=== PATIENT | male | born 1995 | race Caucasian/White ===

== ENCOUNTER 2020-11-10 13:11 | Emergency (ER) | payer MEDICAID ==
[2020-11-10] MEDS ORDERED: Acetaminophen/HYDROcodone 325-5 MG Tab PO ONE (14:05)
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
== END 2020-11-10 14:19 | disposition home or self-care (01) ==
LOC: JP.ED 13:11
DX: M54.5 Low back pain (principal); G89.29 Other chronic pain; Z72.0 Tobacco use; Z79.899 Other long term (current) drug therapy
CPT/HCPCS: 99283; A9270-GY

== ENCOUNTER 2020-11-12 09:50 | Emergency (ER) | payer MEDICAID ==
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
== END 2020-11-12 12:47 | disposition home or self-care (01) ==
LOC: JP.ED 09:50
DX: M54.5 Low back pain (principal); G89.29 Other chronic pain; Z76.5 Malingerer [conscious simulation]; Z72.0 Tobacco use
CPT/HCPCS: 99282; 99283

== ENCOUNTER 2020-11-16 12:37 | Emergency (ER) | payer MEDICAID ==
[2020-11-16] MEDS ORDERED: Lidocaine 5% 700 MG Patch TOP ONE (13:34)
[2020-11-16] MEDS ORDERED: Acetaminophen/HYDROcodone 325-5 MG Tab PO ONE ×2 (13:34→13:43)
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
== END 2020-11-16 14:11 | disposition home or self-care (01) ==
LOC: JP.ED 12:37
DX: M54.5 Low back pain (principal); G89.29 Other chronic pain; Z79.899 Other long term (current) drug therapy
CPT/HCPCS: 80305; 99283; A9270

== ENCOUNTER 2020-11-17 | Emergency (ER) | payer MEDICAID ==
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
[2020-11-20 14:11] LABS: CHLAMYDIA TRACHOMATIS, NAA Negative (Negative); NEISSERIA GONORRHOEAE, NAA Negative (Negative)
== END 2020-11-17 02:40 | disposition home or self-care (01) ==
LOC: JP.ED
DX: T76.21XA Adult sexual abuse, suspected, initial encounter (principal); S20.419A Abrasion of unspecified back wall of thorax, initial encounter; Z72.0 Tobacco use; Z79.899 Other long term (current) drug therapy
CPT/HCPCS: 87491; 87591; 99285

== ENCOUNTER 2020-11-19 22:42 | Emergency (ER) | payer MEDICAID ==
--- NOTE | 2020-11-19 23:08 | EDM.PDOC ---
ED HPI GENERAL MEDICAL PROBLEM - General Chief Complaint: Lower Extremity Injury/Pain Stated Complaint: LEG AND SIDE PAIN Time Seen by Provider: 11/19/20 22:59 Source of Information: Reports: Patient History Limitations: Reports: No Limitations - History of Present Illness INITIAL COMMENTS - FREE TEXT/NARRATIVE: Patient presents describing burning pain in his legs despite multiple different medications used for pain over some time. He was seen in the clinic in town earlier today and was prescribed both diclofenac and prednisone for the symptoms he is describing now. He states that his legs still have a burning discomfort and nothing is helping. He has been seen multiple times in this department recently all of which were visits for pain management. There is an extensive note with reviews of the prescription drug database and prescriptions obtained from multiple providers for this discomfort. He was able to walk into the building tonight and is able to drive a vehicle, as observed on security cameras. 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: Other Medication(s) (He relates a list of multiple medications which have been tried but which do not work for his symptoms.) bilateral leg Pain Score (Numeric/FACES): 10 - Related Data Allergies Allergy/AdvReac Type Severity Reaction Status Date / Time No Known Allergies Allergy Verified 11/17/20 00:15 Home Meds: Home Meds Acetaminophen [Tylenol] 1,000 mg PO Q4H 11/10/20 [History] Indomethacin [Indocin SR] 75 mg PO BID 11/10/20 [History] Methylphenidate HCl [Methylphenidate ER] 10 mg PO BID 11/12/20 [History] Past Medical History Cardiovascular History: Reports: None Respiratory History: Reports: None Gastrointestinal History: Reports: Chronic Diarrhea Genitourinary History: Reports: None Musculoskeletal History: Reports: Back Pain, Chronic Neurological History: Reports: Head Trauma Psychiatric History: Reports: ADHD, Anxiety, PTSD Endocrine/Metabolic History: Reports: None Hematologic History: Reports: None Immunologic History: Reports: None Oncologic (Cancer) History: Reports: None Dermatologic History: Reports: None - Infectious Disease History Infectious Disease History: Reports: C-Difficile - Past Surgical History HEENT Surgical History: Reports: Tonsillectomy Social & Family History - Caffeine Use Caffeine Use: Reports: Soda Review of Systems - Review of Systems Review Of Systems: Unable To Obtain Reason Not Obtained: Perseveration on his description of burning legs. Neurological: Reports: Other (Burning pain in both legs over the entire surfaces and into the buttocks.). Denies: Numbness, Paresthesia, Tingling ED EXAM, GENERAL - Physical Exam Exam: See Below Exam Limited By: Other General Appearance: Anxious, Mild Distress, Other (He was reclining in the chair in room 2 and when we were in the room was rotating his feet and legs and alternating internal/external rotation manner. He is noted to be tachycardic with a pulse of 125 and a slightly elevated blood pressure. Based on his demeanor and his vital signs, I am concerned that he is using street drugs or excessive quantities of unspecified prescription drugs.) Neck: Supple Respiratory/Chest: No Respiratory Distress Cardiovascular: Tachycardia Extremities: Other (He moves his legs in a rhythmic internal and external rotation symmetric movement. He has no difficulty using either of his upper extremities.). No: Limited Range of Motion Neurological: Alert Psychiatric: Other Course - Vital Signs Last Recorded V/S: Last Vital Signs Temp 35.6 C L 11/19/20 23:08 Pulse 125 H 11/19/20 23:08 Resp 18 11/19/20 23:08 BP 144/78 H 11/19/20 23:08 Pulse Ox 100 11/19/20 23:08 - Re-Assessments/Exams Free Text/Narrative Re-Assessment/Exam: 11/19/20 23:47 I reviewed multiple recent department records prior to seeing the patient in the room. When I arrived in the room, he was reclining in the chair in room 2 and was still. When I entered, he began to move his feet and legs in and out in an oscillating movement and continued to do that for the time that I was in the room. He repeated over and over again that it seems like people just "throw drugs" at him without trying to figure out what is going on? Other visits here and outside records reviewed related to his complaints demonstrate otherwise. I was unable to rationalize my plan for chronic pain management. I made reference to other places where I work one of which being the [facility] system where most people have chronic pain. The current medication that he was given in the clinic is very appropriate for ongoing burning nerve pain, which is how I interpret his description of symptoms. I discussed that neurologists and neurosurgeons treat patients and get some relief using steroid bursts. They do not use narcotic medications for chronic pain. He was also prescribed diclofenac which he could use once the prednisone course has finished. He then was asking about muscle relaxant such as Valium and I told him that that also is not appropriate for his current condition as they are not pain relievers. I asked if he had ever been on gabapentin and he told me that it gave him hallucinations. I stated, again, that gabapentin or pregabalin along with prednisone are used for burning nerve pain such as he is describing. He stated that "So you are telling me that you are refusing to provide care?" I stated that I was not refusing to provide care but that based on his complaints and his appearance tonight and review of other records, he currently has available to him the medications which I would use for burning leg pain. I told him he was being discharged. He continued to be increasingly argumentative and I left the room. Nursing staff came to present him with his discharge instructions and he continued to debate and argue with the nurse. I returned to the room twice afterward to again state my position regarding management of his pain and we could not accomplish anything in terms of a useful dialogue. He asked about getting indomethacin for his pain but I told him, several times, that the prednisone prescribed is stronger than indomethacin and any other medicine in that class and I would not be prescribing it. He then returned to the statement regarding providers just "throwing drugs" at him without realizing the fallacy in his arguments. I became increasingly concerned for the safety of the staff in this department given what I feel is significant drug-seeking behavior and law alonso solis was called to escort him from the building. 11/20/20 00:14 The patient called back from his truck in the parking lot later crying and wishing to speak to the night revenue cycle administrator. After she spoke with him, he stated that all he wanted was a "f---ing" Lidoderm patch, a topic which NEVER came up when myself nor the nursing staff were in the room with him previously. I discussed with the nursing smoke control supervisor that I could certainly give him a prescription to fill in the morning for Lidoderm patches. When she attempted to call the patient back, he did not answer his phone and had driven away from the facility. 11/20/20 00:40 Departure - Departure Time of Disposition: 23:20 Disposition: Home, Self-Care 01 Condition: Good Clinical Impression: Drug-seeking behavior Chronic low back pain Qualifiers: Back pain laterality: bilateral Sciatica presence: without sciatica Qualified Code(s): M54.5 - Low back pain - Discharge Information Instructions: Chronic Back Pain, [id number] Referrals: PCP,None [Primary Care Provider] - Forms: ED Department Discharge Additional Instructions: Continue currently prescribed prednisone and diclofenac. Cold packs to painful areas 20 minutes off and on. Narcotic medication is not appropriate for long- term pain and will not be prescribed tonight. The mainstay of dealing with chronic pain involves nonpharmacologic and physical therapy treatment. Sepsis Event Note (ED) - Focused Exam Vital Signs: Vital Signs Temp Pulse Resp BP Pulse Ox 11/19/20 23:08 35.6 C L 125 H 18 144/78 H 100 11/19/20 22:56 35.6 C L 125 H 18 144/78 H 100
== END 2020-11-19 23:26 | disposition home or self-care (01) ==
LOC: JP.ED 22:42
DX: G89.29 Other chronic pain (principal); M54.5 Low back pain; M79.604 Pain in right leg; M79.605 Pain in left leg; Z76.5 Malingerer [conscious simulation]
CPT/HCPCS: 99283

== ENCOUNTER 2020-11-20 16:22 | Emergency (ER) | payer MEDICAID ==
[2020-11-20] MEDS ORDERED: Lidocaine 5% 700 MG Patch TRDERM ONE (17:14)
--- NOTE | 2020-11-20 17:20 | EDM.PDOC ---
ED HPI GENERAL MEDICAL PROBLEM - General Chief Complaint: Back Pain or Injury Stated Complaint: LEFT SIDE, PAIN IN LEGS Time Seen by Provider: 11/20/20 17:09 Source of Information: Reports: Patient, RN Notes Reviewed History Limitations: Reports: No Limitations - History of Present Illness INITIAL COMMENTS - FREE TEXT/NARRATIVE: 25-year-old gentleman returns the emergency department today for treatment of his chronic pain, he was evaluated in the emergency department last night discharged around midnight with police academy instructor escort. Dr. Moncada had written a prescription for Lidoderm patches however his insurance he states will not fill this medication the only time he can get this medication is when he has it placed in the emergency department. He tells me he has an appointment with the pain clinic on Sunday, he states he is here for a Lidoderm patch - Related Data Allergies Allergy/AdvReac Type Severity Reaction Status Date / Time No Known Allergies Allergy Verified 11/20/20 16:47 Home Meds: Home Meds Acetaminophen [Tylenol] 1,000 mg PO Q4H 11/10/20 [History] Indomethacin [Indocin SR] 75 mg PO BID 11/10/20 [History] Methylphenidate HCl [Methylphenidate ER] 10 mg PO BID 11/12/20 [History] Baclofen 1 tab PO TID 11/20/20 [History] predniSONE [Prednisone] 1 tab PO BID 11/20/20 [History] Past Medical History Cardiovascular History: Reports: None Respiratory History: Reports: None Gastrointestinal History: Reports: Chronic Diarrhea Genitourinary History: Reports: None Musculoskeletal History: Reports: Back Pain, Chronic Neurological History: Reports: Head Trauma Psychiatric History: Reports: ADHD, Anxiety, PTSD Endocrine/Metabolic History: Reports: None Hematologic History: Reports: None Immunologic History: Reports: None Oncologic (Cancer) History: Reports: None Dermatologic History: Reports: None - Infectious Disease History Infectious Disease History: Reports: C-Difficile - Past Surgical History HEENT Surgical History: Reports: Tonsillectomy Social & Family History - Tobacco Use Tobacco Use Status *Q: Current Every Day Tobacco User Years of Tobacco use: 10 Packs/Tins Daily: 0.5 - Caffeine Use Caffeine Use: Reports: Soda ED ROS GENERAL - Review of Systems Review Of Systems: See Below Constitutional: Reports: No Symptoms Musculoskeletal: Reports: Shoulder Pain, Arm Pain, Back Pain, Leg Pain Neurological: Reports: Numbness, Tingling ED EXAM, GENERAL - Physical Exam Exam: See Below Exam Limited By: No Limitations General Appearance: Alert, WD/WN, No Apparent Distress, Other (Resting comfortably in the chair) Respiratory/Chest: No Respiratory Distress Course - Vital Signs Last Recorded V/S: Last Vital Signs Temp 97.9 F 11/20/20 17:04 Pulse 109 H 11/20/20 17:04 Resp 16 11/20/20 17:04 BP 142/84 H 11/20/20 17:04 Pulse Ox 97 11/20/20 17:04 - Orders/Labs/Meds Meds: Medications Discontinued Medications Generic Name Dose Route Start Last Admin Trade Name Freq PRN Reason Stop Dose Admin Lidocaine 700 mg 11/20/20 17:14 Lidoderm 5% TRDERM 11/20/20 17:15 ONETIME ONE Departure - Departure Time of Disposition: 17:18 Disposition: Home, Self-Care 01 Condition: Poor Clinical Impression: Chronic pain Qualifiers: Chronic pain type: chronic pain syndrome Qualified Code(s): G89.4 - Chronic pain syndrome - Discharge Information Instructions: Chronic Pain, Adult Referrals: PCP,None [Primary Care Provider] - Additional Instructions: Please keep your appointment with the pain clinic on Sunday Sepsis Event Note (ED) - Evaluation Sepsis Screening Result: No Definite Risk - Focused Exam Vital Signs: Vital Signs Temp Pulse Resp BP Pulse Ox 11/20/20 17:04 97.9 F 109 H 16 142/84 H 97 11/20/20 16:34 97.9 F 109 H 16 142/84 H 97 - Assessment/Plan Plan: Assessment Acuity = chronic Site and laterality = pain syndrome Etiology = unknown suspicious for underlying mental health with addictive properties does have a history of methamphetamine abuse and dependence as well as malingering Manifestations = none Location of injury = Home Lab values = none Plan Granted a prescription for Lidoderm patch he also tried to Barter with me to get enough medication to hold him over until he visits with the pain clinic on Sunday asking for narcotic medication of which I declined I did discuss with him his recent clinic visit with Dr. Voss who recommended that opiates and benzodiazepines are not appropriate treatment for this gentleman's pain. He became argumentative with this at which time I left the room. This note was dictated using [employer] voice recognition software please call with any questions on syntax or grammar.
== END 2020-11-20 18:09 | disposition home or self-care (01) ==
LOC: JP.ED 16:22
DX: G89.4 Chronic pain syndrome (principal); Z72.0 Tobacco use; Z79.899 Other long term (current) drug therapy
CPT/HCPCS: 99283; A9270

== ENCOUNTER 2020-11-26 14:29 | Emergency (ER) | payer MEDICAID ==
--- NOTE | 2020-11-26 15:04 | EDM.PDOC ---
ED HPI GENERAL MEDICAL PROBLEM - General Chief Complaint: General Stated Complaint: FELL/HURT RIGHT SIDE Time Seen by Provider: 11/26/20 15:00 Source of Information: Reports: Patient, Old Records, RN Notes Reviewed History Limitations: Reports: No Limitations - History of Present Illness INITIAL COMMENTS - FREE TEXT/NARRATIVE: 25-year-old gentleman presents emergency department today following a fall at home, he tripped over his dog he landed on his right elbow right hip he states he is experiencing 9 out of 10 pain. I did go into the room with nurse fleet manager present. This gentleman I am concerned for drug-seeking behavior this is now his seventh visit in 3 weeks time always a complaint of pain with an aspect of narcotic seeking I also have reviewed him on the [place] prescription drug monitoring program his score is well over 700. He has tried icing at home he has used his indomethacin which he took about 10:00 the injury occurred at 1:00 he is also taken Tylenol just prior to arrival Right Elbow Pain Score (Numeric/FACES): 9 - Related Data Allergies Allergy/AdvReac Type Severity Reaction Status Date / Time No Known Allergies Allergy Verified 11/26/20 14:44 Home Meds: Home Meds Acetaminophen [Tylenol] 1,000 mg PO Q4H 11/10/20 [History] Indomethacin [Indocin SR] 75 mg PO BID 11/10/20 [History] Methylphenidate HCl [Methylphenidate ER] 10 mg PO BID 11/12/20 [History] Past Medical History Gastrointestinal History: Reports: Chronic Diarrhea Musculoskeletal History: Reports: Back Pain, Chronic Neurological History: Reports: Head Trauma Psychiatric History: Reports: ADHD, Anxiety, PTSD - Infectious Disease History Infectious Disease History: Reports: C-Difficile - Past Surgical History HEENT Surgical History: Reports: Tonsillectomy Social & Family History - Tobacco Use Tobacco Use Status *Q: Current Every Day Tobacco User Years of Tobacco use: 8 Packs/Tins Daily: 0.5 - Caffeine Use Caffeine Use: Reports: Soda - Recreational Drug Use Recreational Drug Use: No ED ROS GENERAL - Review of Systems Review Of Systems: See Below Constitutional: Reports: No Symptoms Respiratory: Reports: No Symptoms Cardiovascular: Reports: No Symptoms GI/Abdominal: Reports: No Symptoms Musculoskeletal: Reports: Joint Pain (elbow and hip pain) ED EXAM, GENERAL - Physical Exam Exam: See Below Free Text/Narrative:: Examination of the right elbow I do appreciate some erythema on the elbow there is a small abrasion approximately half centimeter on the distal aspect of the elbow he has full range of motion I cannot appreciate any specific point tenderness to the elbow radial pulses +2 there is no tenderness at the shoulder, examination of the hip I feel some point tenderness along the buttock over the ball joint he does complain of pain with both flexion extension and internal and external rotation of the right hip Exam Limited By: No Limitations General Appearance: Alert, WD/WN, No Apparent Distress Respiratory/Chest: No Respiratory Distress Course - Vital Signs Last Recorded V/S: Last Vital Signs Temp 98.2 F 11/26/20 14:51 Pulse 99 11/26/20 14:51 Resp 16 11/26/20 14:51 BP 128/78 11/26/20 14:51 Pulse Ox 97 11/26/20 14:51 - Orders/Labs/Meds Orders: Active Orders 24 hr Category Date Time Status Hip Min 2V or 3V Rt [CR] Stat Exams 11/26/20 15:00 Taken - Re-Assessments/Exams Free Text/Narrative Re-Assessment/Exam: 11/26/20 15:14 I did offer him Toradol for pain control however he declined Departure - Departure Time of Disposition: 15:31 Disposition: Home, Self-Care 01 Condition: Poor Clinical Impression: Contusion Qualifiers: Encounter type: initial encounter Contusion area: upper arm Laterality: right Qualified Code(s): S40.021A - Contusion of right upper arm, initial encounter - Discharge Information Referrals: PCP,None [Primary Care Provider] - Forms: ED Department Discharge Additional Instructions: Continue with your indomethacin and your Tylenol, recommend rest and ice for pain control, please followup with your primary care provider in 3-5 days if not better, please call return to the emergency department with worsening of symptoms. Sepsis Event Note (ED) - Evaluation Sepsis Screening Result: No Definite Risk - Focused Exam Vital Signs: Vital Signs Temp Pulse Resp BP Pulse Ox 11/26/20 14:51 98.2 F 99 16 128/78 97 - My Orders Last 24 Hours: My Active Orders 11/26/20 15:00 Hip Min 2V or 3V Rt [CR] Stat - Assessment/Plan Last 24 Hours: My Active Orders 11/26/20 15:00 Hip Min 2V or 3V Rt [CR] Stat Plan: Assessment Acuity = acute Site and laterality = Elbow and hip contusion right side Etiology = secondary to fall Manifestations = none Location of injury = Home Lab values = no acute process on x-rays per radiology Plan I again offered him Toradol injection he declined, he is insistent that he is in need of narcotic pain medication and he declined recommend he follow-up with his primary care or the pain clinic, I felt his injuries are not appropriate for narcotic medication This note was dictated using [employer] voice recognition software please call with any questions on syntax or grammar.
--- NOTE | 2020-11-26 15:28 | CR ---
Elbow Min 3V Rt CLINICAL HISTORY: Fall, pain FINDINGS: No acute fracture or dislocation is noted. The fat pads are in normal position. Articular surfaces are smooth. Impression: Negative.
--- NOTE | 2020-11-26 15:37 | CR ---
Hip Min 2V or 3V Rt CLINICAL HISTORY: Right hip pain, fall FINDINGS: No fracture or osseous lesion is identified. Articular surfaces are smooth. Impression: Negative
== END 2020-11-26 15:35 | disposition home or self-care (01) ==
LOC: JP.ED 14:29
DX: S40.021A Contusion of right upper arm, initial encounter (principal); Z79.899 Other long term (current) drug therapy; Z72.0 Tobacco use; W01.0XXA Fall on same level from slipping, tripping and stumbling without subsequent striking against object, initial encounter; Y92.009 Unspecified place in unspecified non-institutional (private) residence as the place of occurrence of the external cause
CPT/HCPCS: 73080-26-RT; 73080-RT; 73502-26-RT; 73502-RT; 99282; 99283

== ENCOUNTER 2020-12-14 21:07 | Emergency (ER) | payer MEDICAID ==
--- NOTE | 2020-12-14 21:29 | EDM.PDOC ---
ED HPI GENERAL MEDICAL PROBLEM - General Chief Complaint: Lower Extremity Injury/Pain Stated Complaint: POSSIBLE BROKEN TOE Time Seen by Provider: 12/14/20 21:25 Source of Information: Reports: Patient, Old Records, RN History Limitations: Reports: No Limitations - History of Present Illness INITIAL COMMENTS - FREE TEXT/NARRATIVE: 25 yo male stubbed his L 4th toe yesterday and again today. Is concerned about a possible fx. Here for eval. No self tx before arrival. Onset: Sudden Onset Date: 12/13/20 Duration: Day(s): (1+), Constant Location: Reports: Lower Extremity, Left Quality: Reports: Ache, Burning Severity: Moderate Improves with: Reports: Rest Worsens with: Reports: Movement Context: Reports: Trauma Associated Symptoms: Reports: No Other Symptoms Treatments LOSS PREVENTION RESEARCH ENGINEER: Reports: Other (see below) (none) Left Toe-Ring Pain Score (Numeric/FACES): 8 - Related Data Allergies Allergy/AdvReac Type Severity Reaction Status Date / Time No Known Allergies Allergy Verified 11/26/20 14:44 Home Meds: Home Meds Acetaminophen [Tylenol] 1,000 mg PO Q4H 11/10/20 [History] Indomethacin [Indocin SR] 75 mg PO BID 11/10/20 [History] Methylphenidate HCl [Methylphenidate ER] 10 mg PO BID 11/12/20 [History] Past Medical History Cardiovascular History: Reports: None Respiratory History: Reports: None Gastrointestinal History: Reports: Chronic Diarrhea Genitourinary History: Reports: None Musculoskeletal History: Reports: Back Pain, Chronic Neurological History: Reports: Head Trauma Psychiatric History: Reports: ADHD, Anxiety, PTSD Endocrine/Metabolic History: Reports: None Hematologic History: Reports: None Immunologic History: Reports: None Oncologic (Cancer) History: Reports: None Dermatologic History: Reports: None - Infectious Disease History Infectious Disease History: Reports: C-Difficile - Past Surgical History HEENT Surgical History: Reports: Tonsillectomy Social & Family History - Caffeine Use Caffeine Use: Reports: Soda Review of Systems - Review of Systems Review Of Systems: See Below Constitutional: Reports: No Symptoms Musculoskeletal: Reports: Foot Pain (L 4th toe) Skin: Reports: No Symptoms Neurological: Reports: No Symptoms ED EXAM, GENERAL - Physical Exam Exam: See Below General Appearance: Alert, WD/WN, No Apparent Distress Extremities: Normal Inspection, No Pedal Edema, Limited Range of Motion (due to pain, L 4th toe, no deformity). No: Pedal Edema, Increased Warmth, Redness Neurological: Alert, Oriented, CN II-XII Intact, Normal Cognition, No Motor/Sensory Deficits Psychiatric: Normal Affect, Normal Mood Skin Exam: Warm, Dry, Intact, Normal Color, No Rash Course - Vital Signs Last Recorded V/S: Last Vital Signs Temp 36.5 C 12/14/20 21:26 Pulse 88 12/14/20 21:26 Resp 16 12/14/20 21:26 BP 124/72 12/14/20 21:26 Pulse Ox 98 12/14/20 21:26 - Orders/Labs/Meds Orders: Active Orders 24 hr Category Date Time Status Toes Fourth Digit Lt T3 [CR] Stat Exams 12/14/20 21:26 Ordered - Radiology Interpretation Free Text/Narrative:: L 4th toe X-ray-neg - Re-Assessments/Exams Free Text/Narrative Re-Assessment/Exam: 12/14/20 21:27 Offered Toradol for pain, declined. Departure - Departure Time of Disposition: 22:00 Disposition: Home, Self-Care 01 Condition: Good Clinical Impression: Sprain of toe, fourth, left Qualifiers: Encounter type: initial encounter Qualified Code(s): S93.505A - Unspecified sprain of left lesser toe(s), initial encounter - Discharge Information *PRESCRIPTION DRUG MONITORING PROGRAM REVIEWED*: Not Applicable *COPY OF PRESCRIPTION DRUG MONITORING REPORT IN PATIENT YAKOV: Not Applicable Referrals: PCP,None [Primary Care Provider] - Forms: ED Department Discharge Additional Instructions: Acetaminophen and/or ibuprofen OR naproxen as needed for pain relief. F/U with your provider as needed. Elevate to reduce swelling. Sepsis Event Note (ED) - Focused Exam Vital Signs: Vital Signs Temp Pulse Resp BP Pulse Ox 12/14/20 21:26 36.5 C 88 16 124/72 98 12/14/20 21:21 36.5 C 88 16 124/72 98 - My Orders Last 24 Hours: My Active Orders 12/14/20 21:26 Toes Fourth Digit Lt T3 [CR] Stat - Assessment/Plan Last 24 Hours: My Active Orders 12/14/20 21:26 Toes Fourth Digit Lt T3 [CR] Stat
--- NOTE | 2020-12-15 09:07 | CR ---
Toes Fourth Digit Lt T3 CLINICAL HISTORY: Stubbed toe FINDINGS: No fracture seen. There is flexion at the PIP joint which is likely chronic. IMPRESSION: No fracture or dislocation
== END 2020-12-14 22:11 | disposition home or self-care (01) ==
LOC: JP.ED 21:07
DX: S93.505A Unspecified sprain of left lesser toe(s), initial encounter (principal); W22.8XXA Striking against or struck by other objects, initial encounter
CPT/HCPCS: 73660-26-T3; 73660-T3; 99282; 99283